=== PATIENT | female | born 2000 | race Caucasian/White ===

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

== ENCOUNTER 2020-01-12 21:03 | Inpatient (IN) | payer MEDICAID ==
[~2020-01-12] VITALS: Ht 162.6 cm; Wt 127.9 kg
[2020-01-12 22:16] LABS: BILIRUBIN NEGATIVE (NEGATIVE); GLUCOSE NEGATIVE (NEGATIVE); KETONE NEGATIVE (NEGATIVE); NITRITE NEGATIVE (NEGATIVE); UROBILINOGEN NORMAL (NORMAL)
[2020-01-12 22:17] LABS: HEMATOCRIT 31.8 % (36.0-48.0); HEMOGLOBIN 10.9 g/dL (12-16); MCH 32.2 pg (26.0-34.0); MCHC 34.3 g/dL (31.0-37.0); MCV 93.8 fL (80.0-100.0); MEAN PLATELET VOLUME 11.5 fL (7.4-10.4); RBC 3.39 10x6/uL (4.00-5.40); RDW 12.2 % (11.5-14.5); WBC 14.1 10x3/uL (4.8-10.8)
[2020-01-12 22:18] LABS: RED CELLS - URINE 0-5 /hpf (0-5); WHITE CELLS - URINE 0-5 /hpf (NEGATIVE)
[2020-01-12 22:19] LABS: BACTERIA FEW /hpf (NEGATIVE)
[2020-01-12 22:22] VITALS: BP 127/62
[2020-01-12 22:28] LABS: UDS - AMPHET NEGATIVE QUAL (NEGATIVE); UDS - BARB NEGATIVE QUAL (NEGATIVE); UDS - BENZO NEGATIVE QUAL (NEGATIVE); UDS - COCAINE NEGATIVE QUAL (NEGATIVE); UDS - OPIATE NEGATIVE QUAL (NEGATIVE); UDS - PCP NEGATIVE QUAL (NEGATIVE); UDS - THC POSITIVE QUAL (NEGATIVE)
[2020-01-13 10:42] VITALS: Ht 162.6 cm; Wt 127.9 kg
[2020-01-13 21:30] VITALS: BP 103/53
[2020-01-14 06:38] LABS: BASOPHILS 0.1 % (0-2); EOSINOPHILS 0.3 % (0-7); HEMATOCRIT 26.7 % (36.0-48.0); HEMOGLOBIN 9.2 g/dL (12-16); IMMATURE GRANULOCYTES 0.4 % (0-5); LYMPHOCYTES 19.6 % (15-50); MCH 32.5 pg (26.0-34.0); MCHC 34.5 g/dL (31.0-37.0); MCV 94.3 fL (80.0-100.0); MEAN PLATELET VOLUME 11.6 fL (7.4-10.4); NEUTROPHILS 69.6 % (40-80); PLATELET COUNT 244 10x3/uL (130-400); RBC 2.83 10x6/uL (4.00-5.40); RDW 12.3 % (11.5-14.5); WBC 16.3 10x3/uL (4.8-10.8)
[2020-01-14 07:13] LABS: RAPID PLASMA REAGIN Non Reactive (Non Reactive)
--- NOTE | 2020-01-15 10:40 | MORECARE ---
CASE MANAGEMENT DISCHARGE SUMMARY PATIENT: ARCENIO CRENSHAW UNIT: [id number] ADM DATE: 01/12/20 AGE: 19 : [birth year] SEX: F ROOM/BED: D.1257 AUTHOR: SHARON CID PHYSICIAN: REFERRING PHYSICIAN: STELLA PERSON MD DATE OF SERVICE: 01/15/20 Discharge Plan Patient Name: ARCENIO CRENSHAW [facility] 2000 Planned Disposition: Home Anticipated Discharge Date: 01/14/20 Discharge Date: 01/14/2020 Expected LOS: 2 Initial Reviewer: [email or web address] Initial Review Date: 01/12/2020 Generated: 01/15/20 11:39 am Patient Name: ARCENIO CRESNHAW Page [id number] at 1040 All edits/amendments must be made on the electronic document DICTATION DATE: 01/15/20 1039 MANAGER UTILIZATION MANAGEMENT: DM 01/15/20 1039 RPT#: [id number] DC DATE:01/14/20 STATUS: DIS IN [facility] [address] [place] [address] END OF REPORT
== END 2020-01-14 21:50 | disposition home or self-care (01) | DRG 807 ==
LOC: D.LD 21:03
PROVIDERS: ADMIT Obstetrics & Gynecology; ATTEND Obstetrics & Gynecology
PROC: 10D07Z6 Extraction of Products of Conception, Vacuum, Via Natural or Artificial Opening (ICD-10-PCS; principal; 2020-01-13)
PROC: 0W8NXZZ Division of Female Perineum, External Approach (ICD-10-PCS; 2020-01-13)
PROC: 3E033VJ Introduction of Other Hormone into Peripheral Vein, Percutaneous Approach (ICD-10-PCS; 2020-01-13)
DX: O99.334 Smoking (tobacco) complicating childbirth (principal); Z37.0 Single live birth; F17.200 Nicotine dependence, unspecified, uncomplicated; Z3A.38 38 weeks gestation of pregnancy